=== PATIENT | male | born 1960 | race Caucasian/White ===

== ENCOUNTER 2017-11-21 13:16 | Observation (INO) | payer OTHER ==
[2017-11-21 15:28] LABS: Basophils % (Auto) 0.4 % (0.0-1.8); Eosinophils # (Auto) 0.6 K/mm3 (0.0-0.4); Eosinophils % (Auto) 11.7 % (0.0-4.3); Hematocrit 38.6 % (35.5-45.6); Hemoglobin 12.2 gm/dl (11.8-15.2); Lymphocytes # (Auto) 0.7 K/mm3 (1.2-5.4); Lymphocytes % (Auto) 12.4 % (13.4-35.0); Mean Corpuscular HGB Conc 32 % (32-34); Mean Corpuscular Volume 71 fl (84-94); Monocytes # (Auto) 0.4 K/mm3 (0.0-0.8); Platelet Count 164 K/mm3 (140-440); Red Blood Count 5.47 M/mm3 (3.65-5.03); Red Cell Distribution Width 14.9 % (13.2-15.2)
[2017-11-21 15:36] LABS: Bacteria,Urine 1+ /HPF (Negative); Bilirubin,Urine NEG (Negative); Blood,Urine NEG (Negative); Color,Urine Yellow (Yellow); Hyaline Casts,Urine 7 /LPF; Mucus,Urine FEW /HPF; Urobilinogen,Urine < 2.0 mg/dL (<2.0)
[2017-11-21 15:43] LABS: BUN/Creatinine Ratio 25; Blood Urea Nitrogen 27 mg/dL (9-20); Calcium 9.4 mg/dL (8.4-10.2); Hemolysis Index 4
[2017-11-21 15:48] LABS: Mean Corpuscular Hemoglobin 22 pg (28-32)
--- NOTE | 2017-11-21 16:23 | Emergency Department Report ---
ED Dizziness HPI - General Chief Complaint: Dizziness Stated Complaint: DIZZY AND TIRED Time Seen by Provider: 11/21/17 16:23 Source: patient, family Mode of arrival: Ambulatory Limitations: Language Barrier - History of Present Illness MD Complaint: dizziness, near syncope -: Gradual Timing: gradual onset Description: lightheadedness, off-balance History of Same: No History of Trauma: No Severity: moderate Improves With: nothing Worsens With: nothing Associated Symptoms: denies: chest pain, diaphoresis - Related Data Allergies Allergy/AdvReac Type Severity Reaction Status Date / Time No Known Allergies Allergy Unverified 11/21/17 14:31 ED Review of Systems ROS: Stated complaint: DIZZY AND TIRED Other details as noted in HPI Comment: All other systems reviewed and negative Constitutional: denies: chills, fever Eyes: denies: vision change ENT: denies: ear pain, hearing loss Respiratory: denies: cough, shortness of breath Cardiovascular: denies: chest pain, palpitations Endocrine: no symptoms reported Gastrointestinal: abdominal pain. denies: nausea, vomiting, diarrhea Genitourinary: denies: urgency, dysuria, frequency Musculoskeletal: denies: back pain, joint swelling Skin: denies: rash, lesions, change in color Neurological: headache, weakness. 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 Absent: tenderness - Respiratory Respiratory exam: Present: normal lung sounds bilaterally. Absent: respiratory distress, wheezes, rhonchi - Cardiovascular Cardiovascular Exam: Present: regular rate, normal rhythm, normal heart sounds - GI/Abdominal GI/Abdominal exam: Present: soft, tenderness, normal bowel sounds. Absent: distended, guarding, rebound - Extremities Exam Extremities exam: Present: normal inspection, full ROM, normal capillary refill - Back Exam Back exam: Present: normal inspection, full ROM - Neurological Exam Neurological exam: Present: alert, oriented X3, CN II-XII intact - Psychiatric Psychiatric exam: Present: normal affect, normal mood - Skin Skin exam: Present: warm, dry, intact, normal color, other (Posriasis) ED Course Vital Signs 11/21/17 11/21/17 11/21/17 14:31 16:55 16:57 Temperature 97.9 F 97.5 F L Pulse Rate 109 H 85 Pulse Rate [ 85 Lying] Respiratory 20 13 Rate Blood Pressure 99/62 Blood Pressure 107/65 [Left] Blood Pressure 107/65 [Lying] O2 Sat by Pulse 97 98 Oximetry 11/21/17 11/21/17 11/21/17 19:20 19:30 19:58 Temperature Pulse Rate 93 H 89 Pulse Rate [ Lying] Respiratory 14 14 Rate Blood Pressure 166/93 Blood Pressure [Left] Blood Pressure [Lying] O2 Sat by Pulse 98 Oximetry 11/21/17 20:01 Temperature Pulse Rate 93 H Pulse Rate [ Lying] Respiratory 12 Rate Blood Pressure 140/78 Blood Pressure [Left] Blood Pressure [Lying] O2 Sat by Pulse Oximetry - Reevaluation(s) Reevaluation #1: 11/21/17 21:46 I discussed with patient care with dentist, Dr. Canela. He will admit patient to the hospital for further evaluation and management. ED Medical Decision Making - Lab Data Result diagrams: 11/21/17 15:02 11/21/17 15:02 - EKG Data -: EKG Interpreted by Me EKG shows normal: sinus rhythm Rate: normal (97) - EKG Data When compared to previous EKG there are: previous EKG unavailable Interpretation: nonspecific ST-T wave torrie - Radiology Data Radiology results: report reviewed, image reviewed - Medical Decision Making Dehydration. Dizziness. Critical care attestation.: If time is entered above; I have spent that time in minutes in the direct care of this critically ill patient, excluding procedure time. ED Disposition Clinical Impression: Dehydration, Dizziness Abdominal pain Qualifiers: Abdominal location: left lower quadrant Qualified Code(s): R10.32 - Left lower quadrant pain Disposition: -09 OP ADMIT IP TO THIS HOSP Is pt being admited?: Yes Does the pt Need Aspirin: No Condition: Stable Referrals: PRIMARY CARE, [Primary Care Provider] - 3-5 Days Time of Disposition: 21:52
[2017-11-21] MEDS ORDERED: NACL 0.9% 1000 ML 1,000 ML IV ONE ×2 (16:57)
[2017-11-21 17:43] LABS: INR 0.84 (0.87-1.13); Partial Thromboplastin Time 30.3 Sec. (24.2-36.6)
--- NOTE | 2017-11-21 17:43 | XRay Report ---
FINAL REPORT EXAM: XR CHEST 1V AP HISTORY: dizziness TECHNIQUE: AP portable view of the chest PRIORS: None. FINDINGS: Lines, tubes, and devices: N/A Lungs and pleura: Trachea is normal in position. Lungs are clear of infiltrate, pleural effusion, vascular congestion, or pneumothorax. Cardiomediastinal silhouette: Cardiac and mediastinal silhouettes are unremarkable. Other: Bony structures are intact. IMPRESSION: No acute cardiopulmonary process seen.
--- NOTE | 2017-11-21 19:28 | Cat Scan Report ---
FINAL REPORT EXAM: CT HEAD/BRAIN WO CON HISTORY: Dizziness TECHNIQUE: Standard unenhanced CT of the head at 5.0 millimeter axial increments. PRIORS: None. FINDINGS: The ventricular system is normal in size and configuration. There is no evidence for parenchymal volume loss. There is ballooning of the right frontal horn due to an area of postsurgical encephalomalacia in the right frontal region. There is no evidence for mass lesion, mass effect, midline shift, acute intracranial hemorrhage, or acute ischemia/ infarction. Multiple craniotomy defects are present over the right frontal region. No evidence for acute skull fracture is seen. No abnormality in the overlying scalp soft tissues is seen. Visualized paranasal sinuses are clear. IMPRESSION: Postsurgical changes in the right frontal region. No acute intracranial process noted.
--- NOTE | 2017-11-21 20:04 | Cat Scan Report ---
FINAL REPORT EXAM: CT ABDOMEN PELVIS W CON HISTORY: abdominal pain TECHNIQUE: Standard enhanced CT of the abdomen and pelvis. Coronal and sagittal reconstruction was also performed. Delayed imaging through the kidneys and bladder were also obtained. Contrast: 100 mL Omnipaque 300 given IV. PRIORS: None. FINDINGS: The spleen contains an abnormal rounded heterogeneous hypo dense area measuring 9.0 x 8.3 x 8.0 cm (axial image 54, coronal image 77). This becomes somewhat isodense on delayed imaging, however, there still focal hypodense areas within this mass. MRI is recommended. There is mild concentric wall thickening in the ascending and proximal transverse areas of the colon as well as in the sigmoid colon. No surrounding inflammation is seen. However, findings are likely consistent with colitis or Crohn's disease. Within the abdomen, the liver, pancreas, adrenal glands, and kidneys are unremarkable. The multiple high-density foci layering in the gallbladder are likely small gallstones. No evidence for retroperitoneal or pelvic lymphadenopathy is seen. The bowel loops have normal caliber. No fluid collection, inflammatory change, or free air is seen within the abdomen or pelvis. The appendix is normal. Within the pelvis, the bladder is unremarkable. The prostate is normal. No evidence for mass or lymphadenopathy is seen in the pelvis. Images through the upper abdomen include the lung bases which are expanded and clear. Bony structures show bilateral spondylolysis at L4 and L5. Osteophytes throughout the anterior aspect of the lumbar spine are noted. IMPRESSION: 1. Abnormal enlargement of the spleen containing an underlying rounded heterogeneous focus. This may represent an atypical hemangioma is as most of the region becomes isodense on delayed phases. However, several persistent hypodense rounded foci stool in the. MRI is recommended. 2. Mild concentric wall thickening of the ascending, transverse, and sigmoid colon, likely consistent with mild colitis or Crohn's disease 3. Cholelithiasis
[2017-11-21] MEDS ORDERED: DILAUDID IV PRN (23:02)
[2017-11-21] MEDS ORDERED: ZOFRAN IV PRN (23:04)
[2017-11-21] MEDS ORDERED: TYLENOL PO PRN (23:08)
[2017-11-22] MEDS: NACL 0.9% 1000 ML 1,000 ML IV SCH ×2 (01:26→14:22)
[2017-11-22] MEDS ORDERED: D50W (25GM) Syringe IV PRN (03:33)
[2017-11-22] MEDS: HumuLIN R SUB-Q SCH ×4 (04:09→15:40)
[2017-11-22] MEDS: FLAGYL 500 MG/100 ML 500 MG/100 ML BAG IV SCH ×3 (06:05→22:34)
--- NOTE | 2017-11-22 07:33 | History and Physical Report ---
CHIEF COMPLAINT: Dizziness. Other complaint includes weakness and abdominal pain. HISTORY OF PRESENT ILLNESS: The patient is a 57-year-old male who has been having dizziness going on for the last 24-48 hours associated with redness near syncopal feeling. There is also history of abdominal pain, but no history of fever or chills was noted. No history of chest pain or shortness of breath or cough. There is also no history of nausea, vomiting or diarrhea. The patient was seen in the Emergency Room, evaluated and presented for admission. PAST MEDICAL HISTORY: Pertinent for diabetes mellitus. PAST SURGICAL HISTORY: Pertinent of brain surgery for infection. FAMILY HISTORY: Noncontributory. SOCIAL HISTORY: The patient is a former cigarette, does not currently, drinks alcohol, does not use illicit drugs. MEDICATIONS: The patient's home medications are not known at this time. ALLERGIES: There are no known drug allergies. REVIEW OF SYSTEMS: CONSTITUTIONAL: There is no fever, no chills, no diaphoresis. HEENT: There is no headache or sore throat. CARDIOVASCULAR: There is no chest pain or orthopnea. RESPIRATORY: There is no shortness of breath or cough. GASTROINTESTINAL: There is no nausea, no vomiting, no abdominal pain, diarrhea or constipation. NEUROLOGICAL: Dizziness present, near syncopal feeling present. Generalized weakness noted. No change in mental status. MUSCULOSKELETAL: There is no joint pain or swelling. DERMATOLOGICAL: There is no skin rash, or itching. GENITOURINARY: There is no dysuria, hematuria or flank pain. Rest of system review is normal. PHYSICAL EXAMINATION: GENERAL: At the time of exam, the patient was found to be alert, oriented x 3, and not in acute distress. VITAL SIGNS: Initially at the time of presentation showed temperature of 97.9 degree Fahrenheit, pulse of 102, respirations 20, blood pressure 99/62, O2 sat of 97% on room air. HEENT: Show pupils to be equal, round and reactive to light and accommodative. Extraocular muscles intact. NECK: Supple with no JVD or carotid bruit. CARDIOVASCULAR: Show normal first and second heart sounds with no gallops or murmurs. RESPIRATORY: Show good air entry on both sides of the lung with no abnormal breath sounds. GASTROINTESTINAL: Show abdomen to be full, soft, nontender with no organomegaly or rigidity. NEUROLOGIC: Shows no focal deficits. MUSCULOSKELETAL: Show no joint swelling or tenderness. DERMATOLOGICAL: Showed scattered patchy silvery lesions all over the body. GENITOURINARY: Show no costovertebral angle tenderness. PERTINENT LABORATORY DATA AND IMAGING STUDIES: The patient has CBC done with normal white count, normal hemoglobin and normal hematocrit and low MCV of 71 with CBC differential showing high eosinophil count of 11.5. Coagulation studies show high D-dimer of 234. The patient's chemistry shows slightly increased BUN of 27, with normal estimated GFR of greater than 60 and normal creatinine. Blood glucose level was high with a value of 286. The patient's urinalysis was unremarkable. IMAGING STUDIES: The patient had a CT of the head without contrast done that shows postsurgical changes in the right frontal region with no acute intracranial fossae noted. Also, the patient has of the abdomen and pelvis done with contrast and this shows abnormal enlargement of the spleen, containing underlying rounded heterogenous focus, and the radiologist said this may represent an atypical hemangioma, which is mostly seen in this region and the radiologist went further to say that several persistent hypodense rounded foci are also seen and that MRI is needed for clarification. There is also finding of mild concentric wall thickening of the ascending, transverse and sigmoid colon likely consistent with mild colitis of Crohn's disease. There is finding of cholelithiasis in the CT of the abdomen. The patient also had a chest x-ray done that shows no active cardiopulmonary process. DIAGNOSES INCLUDE: 1. Dizziness. 2. Colitis. 3. Cholelithiasis. 4. Dehydration. 5. Hemangioma. PLAN: 1. The patient will be admitted to medical surgical floor on tele. 2. The patient will have general surgical consult with , because of finding of abdominal pain with cholelithiasis and possible hemangiomas. 3. The patient will be on IV Levaquin 750 mg daily and IV metronidazole 500 mg every 8 hours. 4. The patient will be on IV normal saline at 100 mL an hour and will be on IV Zofran 4 mg every 8 hours for nausea and vomiting and IV Dilaudid 1 mg every 4 hours as needed for pain. 5. The patient will be n.p.o. until seen by the surgeon. 6. The patient will have Accu-Cheks every 4 hours followed by sliding scale using low-dose sliding scale coverage with regular insulin. JOB# [id number] [facility]/JANUARY SONG
[2017-11-22] MEDS ORDERED: LEVAQUIN 750MG/150ML 750 MG/150 ML BAG IV SCH (10:00)
[2017-11-22] MEDS: HEPARIN SUB-Q SCH ×2 (10:45→22:34)
--- NOTE | 2017-11-22 15:25 | Progress Note ---
Assessment and Plan Assessment and plan: Daughter Edie "Cesilia" daughter used as Nutrition Manager, Patient is 57 yo [place] man who speaks some Serbian with a history "brain infection" s/p surgery at [facility], DM type 2 and hypertension who presented with dizziness, presyncopal sensation with diarrhea and abdominal pains. He was found to have the following: CT abd/pelvis w/ contrast IMPRESSION: 1. Abnormal enlargement of the spleen containing an underlying rounded heterogeneous focus. This may represent an atypical hemangioma is as most of the region becomes isodense on delayed phases. However, several persistent hypodense rounded foci stool in the. MRI is recommended. 2. Mild concentric wall thickening of the ascending, transverse, and sigmoid colon, likely consistent with mild colitis or Crohn's disease 3. Cholelithiasis CT head wo contrast FINDINGS: The ventricular system is normal in size and configuration. There is no evidence for parenchymal volume loss. There is ballooning of the right frontal horn due to an area of postsurgical encephalomalacia in the right frontal region. There is no evidence for mass lesion, mass effect, midline shift, acute intracranial hemorrhage, or acute ischemia/ infarction. Multiple craniotomy defects are present over the right frontal region. No evidence for acute skull fracture is seen. No abnormality in the overlying scalp soft tissues is seen. Visualized paranasal sinuses are clear. IMPRESSION: Postsurgical changes in the right frontal region. No acute intracranial process noted. pCXR reported as unremarkable. -Dizziness, hypovolemia: treat with ivf -Colitis, infectious: treat with abx -Cholelithasis: Gen surgery to see -Splenic hemangioma, incidental finding History Interval history: Patient was seen and examined. Follow-up on current diagnosis. Overnight uneventful. Patient denies any chest pain, shortness breath, nausea/vomiting or severe headaches. Imaging, nursing note, chart, labs and old chart reviewed. Discussed with patient. Hospitalist Physical - Physical exam Narrative exam: GEN: WDWN, NAD, Awake, Alert, Orientated x 3 HEENT: NCAT, EOMI, PERRL, OP Clear NECK: supple, no adenopathy, no thyromegaly, no JVD CVS/HEART: RRR, normal S1S2, pulses present bilaterally CHEST/LUNGS: CTA B, Symmetrical chest expansion, good air entry bilaterally GI/Abdomen: soft, NTND, good bowel sounds, no guarding or rebound /Bladder: no suprapubic tenderness, no CVA or paraspinal tenderness EXT/Skin: no c/c/e, no obvious rash MSK: FROM x 4 Neuro: CN 2-12 grossly intact, no new focal deficits Psych: calm - Constitutional Vitals: Temp Pulse Resp BP Pulse Ox 98.1 F 76 11 L 110/59 98 11/22/17 04:23 11/22/17 14:00 11/22/17 14:00 11/22/17 14:00 11/22/17 14:00 Results - Labs CBC & Chem 7: 11/21/17 15:02 11/21/17 15:02 Labs: Laboratory Last Values WBC 5.3 K/mm3 (4.5-11.0) 11/21/17 15:02 RBC 5.47 M/mm3 (3.65-5.03) H 11/21/17 15:02 Hgb 12.2 gm/dl (11.8-15.2) 11/21/17 15:02 Hct 38.6 % (35.5-45.6) 11/21/17 15:02 MCV 71 fl (84-94) L 11/21/17 15:02 MCH 22 pg (28-32) L 11/21/17 15:02 MCHC 32 % (32-34) 11/21/17 15:02 RDW 14.9 % (13.2-15.2) 11/21/17 15:02 Plt Count 164 K/mm3 (140-440) 11/21/17 15:02 Lymph % (Auto) 12.4 % (13.4-35.0) L 11/21/17 15:02 [place] % (Auto) 7.0 % (0.0-7.3) 11/21/17 15:02 Eos % (Auto) 11.7 % (0.0-4.3) H 11/21/17 15:02 Baso % (Auto) 0.4 % (0.0-1.8) 11/21/17 15:02 Lymph # 0.7 K/mm3 (1.2-5.4) L 11/21/17 15:02 [place] # 0.4 K/mm3 (0.0-0.8) 11/21/17 15:02 Eos # 0.6 K/mm3 (0.0-0.4) H 11/21/17 15:02 Baso # 0.0 K/mm3 (0.0-0.1) 11/21/17 15:02 Seg Neutrophils % 68.5 % (40.0-70.0) 11/21/17 15:02 Seg Neutrophils # 3.6 K/mm3 (1.8-7.7) 11/21/17 15:02 PT 11.9 Sec. (12.2-14.9) L 11/21/17 17:08 INR 0.84 (0.87-1.13) L 11/21/17 17:08 APTT 30.3 Sec. (24.2-36.6) 11/21/17 17:08 D-Dimer 234.57 ng/mlDDU (0-234) H 11/21/17 17:08 VBG pH 7.337 (7.320-7.420) 11/21/17 15:02 Sodium 138 mmol/L (137-145) 11/21/17 15:02 Potassium 5.0 mmol/L (3.6-5.0) 11/21/17 15:02 Chloride 100.4 mmol/L (98-107) 11/21/17 15:02 Carbon Dioxide 24 mmol/L (22-30) 11/21/17 15:02 Anion Gap 19 mmol/L 11/21/17 15:02 BUN 27 mg/dL (9-20) H 11/21/17 15:02 Creatinine 1.1 mg/dL (0.8-1.5) 11/21/17 15:02 Estimated GFR > 60 ml/min 11/21/17 15:02 BUN/Creatinine Ratio 25 % 11/21/17 15:02 Glucose 286 mg/dL (75-100) H 11/21/17 15:02 POC Glucose 148 (70-105) H 11/22/17 05:54 Calcium 9.4 mg/dL (8.4-10.2) 11/21/17 15:02 Total Creatine Kinase 78 units/L (55-170) 11/21/17 17:08 NT-Pro-B Natriuret Pep 21.86 pg/mL (0-900) 11/21/17 17:08 Lipase 40 units/L (13-60) 11/21/17 17:08 Urine Color Yellow (Yellow) 11/21/17 15:11 Urine Turbidity Clear (Clear) 11/21/17 15:11 Urine pH 5.0 (5.0-7.0) 11/21/17 15:11 Ur Specific [place] 1.023 (1.003-1.030) 11/21/17 15:11 Urine Protein 30 mg/dl mg/dL (Negative) 11/21/17 15:11 Urine Glucose (UA) >=500 mg/dL (Negative) 11/21/17 15:11 Urine Ketones Neg mg/dL (Negative) 11/21/17 15:11 Urine Blood Neg (Negative) 11/21/17 15:11 Urine Nitrite Neg (Negative) 11/21/17 15:11 Urine Bilirubin Neg (Negative) 11/21/17 15:11 Urine Urobilinogen < 2.0 mg/dL (<2.0) 11/21/17 15:11 Ur Leukocyte Esterase Neg (Negative) 11/21/17 15:11 Urine WBC (Auto) 1.0 /HPF (0.0-6.0) 11/21/17 15:11 Urine RBC (Auto) 2.0 /HPF (0.0-6.0) 11/21/17 15:11 Urine Bacteria (Auto) 1+ /HPF (Negative) 11/21/17 15:11 Hyaline Casts 7 /LPF 11/21/17 15:11 Urine Mucus Few /HPF 11/21/17 15:11
--- NOTE | 2017-11-22 20:44 | Consultation ---
History of Present Illness Consult date: 11/22/17 Reason for consult: abdominal pain Requesting physician: SAMIRA CARSON Chief complaint: Abdominal pain - History of present illness History of present illness: 57yo M with h/o DM presented to ED with dizziness and fatigue. At that time, he also reported abdominal pain. Denies any abdominal pain now. Found to have gallstones on CT. Pt reports that 2-3 weeks ago he had lower abdominal pain also with diarrhea. Saw his PCP for that. That has resolved. No postprandial pain. No nausea or vomiting. Pt is hungry. Past History Past Medical History: diabetes Past Surgical History: Other (brain abscess drainage) Social history: denies: smoking (former smoker) Family history: no significant family history Medications and Allergies Allergies Allergy/AdvReac Type Severity Reaction Status Date / Time No Known Allergies Allergy Verified 11/21/17 23:07 Active Meds: Active Medications Acetaminophen (Tylenol) 650 mg PO Q4H PRN PRN Reason: For Pain/Fever/Headache Dextrose (D50w (25gm) Syringe) 50 ml IV PRN PRN PRN Reason: Hypoglycemia Heparin Sodium (Porcine) (Heparin) 5,000 unit SUB-Q Q12HR ELIZABETH Last Admin: 11/22/17 10:45 Dose: 5,000 unit Hydromorphone HCl (Dilaudid) 1 mg IV Q4H PRN PRN Reason: Pain Levofloxacin/Dextrose (Levaquin 750mg/150ml) 750 mg in 150 mls @ 100 mls/hr IV Q24HR ELIZABETH; Protocol Last Admin: 11/22/17 10:45 Dose: 100 mls/hr Metronidazole (Flagyl 500 Mg/100 Ml) 500 mg in 100 mls @ 100 mls/hr IV Q8HR ELIZABETH Last Admin: 11/22/17 14:22 Dose: 100 mls/hr Sodium Chloride (Nacl 0.9% 1000 Ml) 1,000 mls @ 100 mls/hr IV DIRECT ELIZABETH Last Admin: 11/22/17 14:22 Dose: 100 mls/hr Insulin Human Regular (Humulin R) 0 units SUB-Q Q4HR ELIZABETH; Protocol Last Admin: 11/22/17 15:40 Dose: Not Given Ondansetron HCl (Zofran) 4 mg IV Q8H PRN PRN Reason: Nausea And Vomiting Review of Systems - Constitutional fatigue, no fever, no chills - Cardiovascular syncope (near), no chest pain - Respiratory shortness of breath - Gastrointestinal other (no IBD hx), no abdominal pain, no nausea, no vomiting, no diarrhea ( resolved), no BRBPR, no melena, no hematochezia - Genitourinary no dysuria - Muskuloskeletal no low back pain - Integumentary no jaundice - Neurological other (dizziness) Exam Vital Signs Temp Pulse Resp BP Pulse Ox 97.9 F 109 H 20 99/62 97 11/21/17 14:31 11/21/17 14:31 11/21/17 14:31 11/21/17 14:31 11/21/17 14:31 - General physical appearance Positive: no distress, no pain, other (pleasant) - Eyes Positive: normal occular movement - Respiratory Positive: normal expansion, normal respiratory effort - Cardiovascular Rhythm: regular - Extremities Extremities: No edema, normal temperature, normal color - Abdomen Abdomen: Present: soft, bowel sounds normal, other (psoriasis). Absent: tender , distended, guarding, rigid, surgical scars - Integumentary other (psoriasis) - Neurologic Neurologic: alert and oriented to time, place and person, motor strength and sensation are grossly intact - Psychiatric Psychiatric: appropriate mood/affect, intact judgment & insight Results - Labs 11/21/17 15:02 11/21/17 15:02 Abnormal lab results 11/21/17 11/22/17 11/22/17 Range/Units 17:16 04:07 05:54 POC Glucose 259 H 165 H 148 H (70-105) 11/22/17 11/22/17 Range/Units 13:02 15:40 POC Glucose 137 H 133 H (70-105) - Imaging CT scan - abdomen: report reviewed CT scan - pelvis: report reviewed Assessment and Plan - Patient Problems (1) Abdominal pain Current Visit: Yes Status: Acute Qualifiers: Abdominal location: left lower quadrant Qualified Code(s): R10.32 - Left lower quadrant pain Plan to address problem: Pt had abdominal pain that has resolved now. I do not think he is symptomatic from his gallstones. He gives no history of postprandial pain. His history is suggestive of possibly infectious colitis 2-3 weeks ago that has resolved now. Etiology not clear. Denies any travel or sick contacts. However, it is resolved now and his abdomen is completely benign. Discussed with Dr. Giron. Will start diet and observe. Please call with questions. Will follow up tomorrow. Time-45min
[2017-11-23] MEDS: HumuLIN R SUB-Q SCH ×2 (01:19→06:29)
[2017-11-23] MEDS: FLAGYL 500 MG/100 ML 500 MG/100 ML BAG IV SCH (06:28)
[2017-11-23] MEDS: NACL 0.9% 1000 ML 1,000 ML IV SCH (06:33)
--- NOTE | 2017-11-23 09:34 | Discharge Summary ---
Providers - Providers Date of Admission: 11/21/17 22:57 Date of discharge: 11/23/17 Attending physician: SILVIA SOTO 11/22/17 06:00 Consult to Physician [CONS] Routine Comment: Consulting Provider: EDEL MARSHALL Physician Instructions: Reason For Exam: ABDOMINAL PAIN WITH CHOLELITHIASIS Primary care physician: [employer] Hospitalization Condition: Stable Hospital course: Daughter Edie "Cesilia" daughter used as Cloth Napping Supervisor, Patient is 57 yo [place] man who speaks some Tunisian with a history "brain infection" s/p surgery at [place], DM type 2 and hypertension who presented with dizziness, presyncopal sensation with diarrhea and abdominal pains. He was found to have the following: CT abd/pelvis w/ contrast IMPRESSION: 1. Abnormal enlargement of the spleen containing an underlying rounded heterogeneous focus. This may represent an atypical hemangioma is as most of the region becomes isodense on delayed phases. However, several persistent hypodense rounded foci stool in the. MRI is recommended. 2. Mild concentric wall thickening of the ascending, transverse, and sigmoid colon, likely consistent with mild colitis or Crohn's disease 3. Cholelithiasis CT head wo contrast FINDINGS: The ventricular system is normal in size and configuration. There is no evidence for parenchymal volume loss. There is ballooning of the right frontal horn due to an area of postsurgical encephalomalacia in the right frontal region. There is no evidence for mass lesion, mass effect, midline shift, acute intracranial hemorrhage, or acute ischemia/ infarction. Multiple craniotomy defects are present over the right frontal region. No evidence for acute skull fracture is seen. No abnormality in the overlying scalp soft tissues is seen. Visualized paranasal sinuses are clear. IMPRESSION: Postsurgical changes in the right frontal region. No acute intracranial process noted. pCXR reported as unremarkable. -Dizziness, hypovolemia: treat with ivf, resolved -Colitis, infectious resolved -Cholelithasis: Gen surgery evaluated -Splenic hemangioma, incidental finding Disposition: TO HOME OR SELFCARE Time spent for discharge: 34 minutes Core Measure Documentation - Palliative Care Palliative Care/ Comfort Measures: Not Applicable - Core Measures Any of the following diagnoses?: none - VTE Discharge Requirements Deep Vein Thrombosis/Pulmonary Embolism Present on Admission: No Has pt received <5 days of overlap therapy or INR<2.0: No Anticoagulant overlap therapy prescribed at discharge: No Contraindication No Overlap Therapy order at DC: Not Indicated Exam - Physical Exam Narrative exam: GEN: WDWN, NAD, Awake, Alert, Orientated x 3 HEENT: NCAT, EOMI, PERRL, OP Clear NECK: supple, no adenopathy, no thyromegaly, no JVD CVS/HEART: RRR, normal S1S2, pulses present bilaterally CHEST/LUNGS: CTA B, Symmetrical chest expansion, good air entry bilaterally GI/Abdomen: soft, NTND, good bowel sounds, no guarding or rebound /Bladder: no suprapubic tenderness, no CVA or paraspinal tenderness EXT/Skin: no c/c/e, no obvious rash MSK: FROM x 4 Neuro: CN 2-12 grossly intact, no new focal deficits Psych: calm - Constitutional Vitals: Temp Pulse Resp BP Pulse Ox 98.2 F 89 18 135/71 97 11/23/17 03:57 11/23/17 03:57 11/23/17 03:57 11/23/17 03:57 11/23/17 03:57 Plan Activity: other (no strenous activity until cleared by PCP) Diet: low salt Follow up with: PRIMARY CARE, [Primary Care Provider] - 3-5 Days Forms: Work/School Release Form
[2017-11-23 10:26] VITALS: BP 130/70
== END 2017-11-23 11:45 | disposition home or self-care (01) ==
LOC: ED 13:16 → 3A 22:57 → INTOOBSV 22:57 → 4A 11-22 00:37
PROVIDERS: ADMIT Internal Medicine; ATTEND Internal Medicine
DX: R42 Dizziness and giddiness (principal); K80.20 Calculus of gallbladder without cholecystitis without obstruction; E86.0 Dehydration; I10 Essential (primary) hypertension; E11.9 Type 2 diabetes mellitus without complications; D18.09 Hemangioma of other sites; E86.1 Hypovolemia; Z87.891 Personal history of nicotine dependence
CPT/HCPCS: 36415; 70450; 71045; 74177; 80048; 81001; 82550; 82805; 82962; 83690; 83880; 85025; 85379; 85610; 85730; 93005; 93010; 96361; 96365; 96366; 96367; 96372; 99285; G0378; J1644; J1956; J7030; Q9967; 96360; J1815

== ENCOUNTER 2019-01-20 08:59 | Outpatient (CLI) | payer OTHER ==
--- NOTE | 2019-01-20 10:35 | XRay Report ---
CERVICAL SPINE, 4 VIEWS INDICATION: CERVICAL PAIN. Workmen's Compensation COMPARISON: None. IMPRESSION: Normal alignment. No significant discogenic DJD or facet arthropathy. No acute osseous or soft tissue abnormality. LUMBOSACRAL SPINE, 3 VIEWS INDICATION: Back pain. Workmen's Compensation COMPARISON: None. IMPRESSION: There is 2-3 mm anterolisthesis of L4 with respect to L5 on the lateral view. This appea rs to be secondary to degenerative facet arthropathy. The remaining lumbar vertebrae are normal in al ignment. Mild diffuse facet arthropathy is identified at all levels. Mild disc space narrowing at L4 -5 and L5-S1. Anterior near bridging osteophytes are noted at L2-3, L3-4 and L4-5. No acute osseous or soft tissue abnormality. LEFT HIP, 2 VIEWS INDICATION: Left hip pain. Workman's compensation.. COMPARISON: None. IMPRESSION: No acute osseous or soft tissue abnormality. Minimal osteoarthritic changes are noted at the left hip. No bone lesion or osteonecrosis. The visualized pelvis is unremarkable. Signer Name: Alon Singh Jr, MD Signed: 01/20/2019 10:30 AM Workstation Name: [id number]
== END 2019-01-20 09:00 | disposition home or self-care (01) ==
LOC: XRAY 08:59
PROVIDERS: ATTEND Internal Medicine
DX: Z02.71 Encounter for disability determination (principal); M16.12 Unilateral primary osteoarthritis, left hip; M48.07 Spinal stenosis, lumbosacral region; M43.16 Spondylolisthesis, lumbar region; M54.2 Cervicalgia
CPT/HCPCS: 72040; 72100

== ENCOUNTER 2021-08-02 19:06 | Emergency (ER) | payer SELFPAY ==
[2021-08-02] MEDS ORDERED: ONDANSETRON 4 MG/2 ML INJ IV ONE (21:31)
[2021-08-02] MEDS ORDERED: fentaNYL 100 MCG/2 ML INJ IV ONE (21:31)
[2021-08-02] MEDS ORDERED: SODIUM CHLORIDE 0.9% 1000 ML 1,000 ML IV ONE (21:31)
[2021-08-02] MEDS ORDERED: LIDOCAINE 2%/EPINEPHRINE 1:100,000 VIAL (20 ML) INFILTRATI ONE (21:32)
--- NOTE | 2021-08-02 21:39 | Emergency Department Report ---
HPI - General Time Seen by Provider: 08/02/21 21:21 - HPI HPI: Room 21 The patient is a 60-year-old male present with a chief complaint of neck abscess. The patient states he has had a growth in the back right side of his neck for the past 4 days. Patient admits to subjective fever but denies drainage. Patient gives his pain a score of 10/10. Patient denies having a recent haircut. Per EMS the patient's glucose was 500 ED Past Medical Hx - Past Medical History Hx Hypertension: Yes Hx Diabetes: Yes Additional medical history: Psoriasis - Surgical History Additional Surgical History: Removal of infection in brain - Family History Family history: no significant - Social History Smoking Status: Never Smoker Substance Use Type: Alcohol (Occasional) - Medications Home Medications: Home Medications Medication Instructions Recorded Confirmed Last Taken Type Doxycycline Hyclate 100 mg PO BID #10 tablet. 08/05/20 Unknown Rx Ferrous Sulfate [Feosol 325 MG tab] 325 mg PO QDAY #30 tablet 08/05/20 Unknown Rx Insulin Glargine [Lantus VIAL] 16 units SUB-Q QAMDIAB 30 Days 08/05/20 Unknown Rx units Metoprolol [Lopressor TAB] 12.5 mg PO BID #60 tablet 08/05/20 Unknown Rx Valsartan [Diovan] 80 mg PO QDAY #30 tablet 08/05/20 Unknown Rx oxyCODONE /ACETAMINOPHEN [Percocet 1 tab PO Q4H PRN #10 tablet 08/05/20 Unknown Rx 5/325 mg] Clindamycin [Clindamycin CAP] 300 mg PO Q6H #28 cap 08/03/21 Unknown Rx HYDROcodone/APAP 5-325 [[place] 1 - 2 each PO Q6HR PRN #14 tablet 08/03/21 Unknown Rx 5/325] ED Review of Systems ROS: Stated complaint: NECK PAIN Other details as noted in HPI Constitutional: fever (Subjective) Eyes: denies: eye pain ENT: denies: throat pain Respiratory: no symptoms reported Cardiovascular: denies: chest pain Endocrine: no symptoms reported Gastrointestinal: denies: abdominal pain Genitourinary: denies: dysuria Skin: lesions Neurological: denies: headache Physical Exam - Physical Exam Physical Exam: GENERAL: The patient is well-developed well-nourished male lying on stretcher not appearing to be in acute distress. [] HEENT: Normocephalic. Atraumatic. Extraocular motions are intact. Approximately tennis ball sized region to the nape of the neck on the right side. Overlying erythema. No active drainage NECK: Supple. Trachea midline CHEST/LUNGS: Clear to auscultation. There is no respiratory distress noted. HEART/CARDIOVASCULAR: Regular. There is no tachycardia. There is no gallop rub or murmur. ABDOMEN: Abdomen is soft, nontender. Patient has normal bowel sounds. There is no abdominal distention. SKIN: There is no rash. There is no edema. There is no diaphoresis. NEURO: The patient is awake, alert, and oriented. The patient is cooperative. The patient has no focal neurologic deficits. The patient has normal speech. GC S 15 MUSCULOSKELETAL: There is no evidence of acute injury. ED Course - Reevaluation(s) Reevaluation #1: 08/03/21 01:01 Accu-Chek 314 - I & D Neck Type of Procedure: Simple Site: Nape of neck Blade Size: 11 I & D Procedure: betadine prep, gauze wick placed Progress: Approximately 5 mL of purulent drainage expressed ED Medical Decision Making - Lab Data Result diagrams: 08/02/21 21:37 08/02/21 21:37 Laboratory Tests 08/02/21 08/02/21 08/02/21 21:37 21:37 21:37 WBC 15.3 H RBC 4.53 Hgb 9.6 L Hct 30.8 L MCV 68 L MCH 21 L MCHC 31 L RDW 15.6 H Plt Count 314 Add Manual Diff Complete Total Counted 100 Seg Neuts % (Manual) 87.0 H Band Neutrophils % 0 Lymphocytes % (Manual) 3.0 L Reactive Lymphs % (Man) 0 Monocytes % (Manual) 10.0 H Eosinophils % (Manual) 0 Basophils % (Manual) 0 Metamyelocytes % 0 Myelocytes % 0 Promyelocytes % 0 Blast Cells % 0 Nucleated RBC % Not Reportable Seg Neutrophils # Man 13.3 H Band Neutrophils # 0.0 Lymphocytes # (Manual) 0.5 L Abs React Lymphs (Man) 0.0 Monocytes # (Manual) 1.5 H Eosinophils # (Manual) 0.0 Basophils # (Manual) 0.0 Metamyelocytes # 0.0 Myelocytes # 0.0 Promyelocytes # 0.0 Blast Cells # 0.0 WBC Morphology Not Reportable Hypersegmented Neuts Not Reportable Hyposegmented Neuts Not Reportable Hypogranular Neuts Not Reportable Smudge Cells Not Reportable Toxic Granulation Not Reportable Toxic Vacuolation Not Reportable Dohle Bodies Not Reportable Pelger-Huet Anomaly Not Reportable Adalgisa Rods Not Reportable Platelet Estimate Not Reportable Clumped Platelets Not Reportable Plt Clumps, EDTA Not Reportable Large Platelets Not Reportable Giant Platelets Not Reportable Platelet Satelliting Not Reportable Plt Morphology Comment Not Reportable RBC Morphology Not Reportable Dimorphic RBCs Not Reportable Polychromasia 1+ Hypochromasia 2+ Poikilocytosis Not Reportable Anisocytosis Few Microcytosis Few Macrocytosis Rare Spherocytes Not Reportable Pappenheimer Bodies Not Reportable Sickle Cells Not Reportable Target Cells Few Tear Drop Cells Not Reportable Ovalocytes Few Helmet Cells Not Reportable [place] Bodies Not Reportable [place] Rings Not Reportable [place] Cells Not Reportable Bite Cells Not Reportable Crenated Cell Not Reportable Elliptocytes Not Reportable Acanthocytes (Spur) Not Reportable Rouleaux Not Reportable Hemoglobin C Crystals Not Reportable Schistocytes Few Malaria parasites Not Reportable Terry Bodies Not Reportable Hem Pathologist Commnt No VBG pH 7.396 Sodium 129 L Potassium 4.5 Chloride 93.2 L Carbon Dioxide 18 L Anion Gap 22 BUN 40 H Creatinine 2.2 H Estimated GFR 30 BUN/Creatinine Ratio 18 Glucose 436 H Calcium 7.6 L - Differential Diagnosis Abscess, DKA, hyperglycemia Critical care attestation.: If time is entered above; I have spent that time in minutes in the direct care of this critically ill patient, excluding procedure time. ED Disposition Clinical Impression: Abscess of skin of neck Disposition: HOME / SELF CARE / HOMELESS Is pt being admited?: No Does the pt Need Aspirin: No Condition: Stable Instructions: Skin Abscess, Incision and Drainage, Incision and Drainage, Care After Additional Instructions: You should return to the emergency department or follow-up with your primary physician in 2 days to have your packing removed and wound reassessed. Return to the emergency department should you develop worsening symptoms, inability to tolerate food or liquids, high fever or any other concerns Prescriptions: Clindamycin [Clindamycin CAP] 300 mg PO Q6H #28 cap HYDROcodone/APAP 5-325 [[place] 5/325] 1 - 2 each PO Q6HR PRN #14 tablet PRN Reason: Pain Time of Disposition: 01:02
[2021-08-02 22:10] LABS: Hematocrit 30.8 % (35.5-45.6); Hemoglobin 9.6 gm/dl (11.8-15.2); Mean Corpuscular HGB Conc 31 % (32-34); Platelet Count 314 K/mm3 (140-440); Red Blood Count 4.53 M/mm3 (3.65-5.03); Red Cell Distribution Width 15.6 % (13.2-15.2)
[2021-08-02 22:13] LABS: Mean Corpuscular Volume 68 fl (84-94)
[2021-08-02 22:48] LABS: Calcium 7.6 mg/dL (8.4-10.2)
[2021-08-02 23:10] LABS: Anisocytosis Few; Basophils % (Manual) 0 % (0.0-1.8); Eosinophils % (Manual) 0 % (0.0-4.3); Hypochromasia 2+; Macrocytosis Rare; Ovalocytes Few; Schistocytes Few; Target Cells Few; Total Cells Counted 100
[2021-08-03] MEDS ORDERED: HYDROmorphone 1 MG/1 ML INJ IV ONE (00:22)
[2021-08-03] MEDS ORDERED: INSULIN REGULAR, HUMAN 100 UNITS/1 ML IV ONE (00:59)
[2021-08-03 02:15] VITALS: BP 137/77
== END 2021-08-03 02:15 | disposition home or self-care (01) ==
LOC: ED 19:06
DX: L02.11 Cutaneous abscess of neck (principal); I10 Essential (primary) hypertension; E11.8 Type 2 diabetes mellitus with unspecified complications; F10.20 Alcohol dependence, uncomplicated
CPT/HCPCS: 10060; 36415; 80048; 82805; 82962; 85007; 85025; 87040; 87076; 87116; 87186; 96361; 96365; 96375; 99284; J1170; J2405; J3010; J3490; J7030; J7502; Q0162; Q9967; J1815